=== PATIENT | male | born 1975 | race Caucasian/White ===

== ENCOUNTER 2021-02-08 21:30 | Inpatient (IN) | payer SELFPAY ==
[2021-02-08] MEDS ORDERED: Acetaminophen 325 MG Tab PO PRN (23:44)
[2021-02-08] MEDS ORDERED: Ibuprofen 200 MG Tab PO PRN (23:44)
--- NOTE | 2021-02-08 23:44 | PCM.HP.2 ---
H&P History of Present Illness - General Date of Service: 02/08/21 Admit Problem/Dx: Admission Diagnosis/Problem Admission Diagnosis/Problem Respiratory distress - History of Present Illness Initial Comments - Free Text/Narative: 45 yo male with pmh of hypertension who presented to [place] with increasing shortness of breath and cough. Patient was diagnosed with COVID-19 about two weeks ago. Contract tracer in [place] linked the infection back to when he ate at an [employer]. Patient reports he had fevers chills, cough, and shortness of breath that improved but then started to get worse four days ago. He was noted to be satting in the mid 80s and was requring 2 L NC O@ to keep sats above 90%. He had a CT angio which was negative for PE but showed infiltrates consistent with COVID. PAtient was given Rmdesivir 200 mg and Dexamethasone 10mg IV. [place] [facility] then arranged direct admission here in [place]. Patient has not received a COVID vaccine. - Related Data Allergies/Adverse Reactions: Allergies Allergy/AdvReac Type Severity Reaction Status Date / Time No Known Allergies Allergy Verified 02/08/21 22:03 Home Medications: Home Meds RX: Omeprazole 1 cap PO DAILY 07/05/18 [History] Naproxen Sodium [Aleve] 220 mg PO ONCALL PRN 07/11/18 [History] Naproxen [Naprosyn] 500 mg PO Q12HR #20 tab 07/11/18 [Rx] Albuterol Sulfate [Albuterol Sulfate HFA] 2 puff INH Q2H PRN 02/08/21 [History] lisinopriL [Lisinopril] 40 mg PO DAILY 02/08/21 [History] Past Medical History HEENT History: Reports: None Cardiovascular History: Reports: Hypertension Respiratory History: Reports: Other (See Below) Other Respiratory History: emphysema Gastrointestinal History: Reports: GERD Musculoskeletal History: Reports: Amputation, Fracture Neurological History: Reports: Migraines Endocrine/Metabolic History: Reports: Obesity/BMI 30+ - Past Surgical History HEENT Surgical History: Reports: None GI Surgical History: Reports: Hernia, Inguinal Male Surgical History: Reports: Vasectomy Musculoskeletal Surgical History: Reports: Shoulder Surgery Social & Family History - Tobacco Use Tobacco Use Status *Q: Former Tobacco User Used Tobacco, but Quit: Yes Month/Year Tobacco Last Used: 2013 - Caffeine Use Caffeine Use: Reports: None - Recreational Drug Use Recreational Drug Use: No H&P Review of Systems - Review of Systems: Review Of Systems: Comprehensive ROS is negative, except as noted in HPI. Exam - Exam Exam: See Below - Vital Signs Vital Signs: Last Vital Signs Temp 36.1 C 02/08/21 22:04 Pulse 82 02/08/21 22:04 Resp 20 02/08/21 22:04 BP 135/82 02/08/21 22:04 Pulse Ox 94 L 02/08/21 22:04 Weight: 135.397 kg - Exam General: Alert, Oriented HEENT: Mucosa Moist & [place] Neck: Supple Lungs: Clear to Auscultation, Normal Respiratory Effort Cardiovascular: Regular Rate, Regular Rhythm GI/Abdominal Exam: Soft, Non-Tender, No Distention Extremities: Non-Tender, No Pedal Edema Skin: Warm, Dry, Intact Neurological: No: Focal Deficit Sepsis Event Note - Evaluation Sepsis Screening Result: No Definite Risk - Focused Exam Vital Signs: Vital Signs Temp Pulse Resp BP Pulse Ox 02/08/21 22:04 36.1 C 82 20 135/82 94 L Problem List Initiated/Reviewed/Updated: Yes Orders Last 24hrs: Active Orders 24 hr Category Date Time Status Admission Status [Patient Status] [ADT] Routine ADT 02/08/21 21:49 Active Telemetry Monitoring [Cardiac Monitoring] [RC] Q8H Care 02/08/21 21:50 Active Assessment/Plan Comment:: 45 yo male admitted for acute hypoxic respiratory failure from COVID pneumonia. We will treat with supplemental oxygen via NC. We will continue Remdesivir, Dexamethasone and lovenox.
[2021-02-08] MEDS ORDERED: Azithromycin 500 MG Vial IV SCH (23:45)
[2021-02-08] MEDS ORDERED: cefTRIAXone 1 GM Vial IVPUSH SCH (23:45)
[2021-02-08] MEDS ORDERED: Albuterol 8 GM Inhaler INH PRN (23:49)
[2021-02-09] MEDS: cefTRIAXone 1 GM in Premix Bag 1 BAG IV SCH ×2 (00:12→22:51)
[2021-02-09] MEDS: Enoxaparin 40 MG/0.4 ML Syringe SUBCUT SCH ×2 (00:25→22:50)
[2021-02-09] MEDS: Azithromycin 500 MG in Sodium Chloride 0.9% 250 ML IV SCH ×2 (01:03→23:39)
[2021-02-09] MEDS: Omeprazole 20 MG Cap.CR PO SCH (06:32)
[2021-02-09 06:49] LABS: BLOOD UREA NITROGEN,BUN 11 mg/dL (7.0-18.0); CARBON DIOXIDE,CO2 29.6 mmol/L (21.0-32.0); CHLORIDE,CL 100 mmol/L (98-107); GLUCOSE RANDOM 186 mg/dL (74-106); POTASSIUM,K 3.8 mmol/L (3.5-5.1); SODIUM,NA 138 mmol/L (136-148)
[2021-02-09] MEDS ORDERED: Cholecalciferol (Vitamin D3) 25 MCG Tab PO ONE ×2 (09:15→09:22)
[2021-02-09] MEDS: Dexamethasone 4 MG Tab PO SCH (10:03)
[2021-02-09] MEDS: Lisinopril 10 MG Tab PO SCH (10:04)
--- NOTE | 2021-02-09 11:02 | PCM.PN ---
- General Info Date of Service: 02/09/21 Subjective Update: Patient states improvement this morning. States resolved headaches but has a sore throat when coughing. Denies chest pain, abdominal pain, states mild SOB, denies wheezing. Denies fever, chills, nausea, vomiting. - Review of Systems General: Denies: Fever, Chills Pulmonary: Reports: Shortness of Breath, Cough. Denies: Wheezing Cardiovascular: Reports: Dyspnea on Exertion Gastrointestinal: Denies: Abdominal Pain, Nausea, Vomiting Psychiatric: Denies: Confusion - Patient Data Vitals - Most Recent: Last Vital Signs Temp 96.6 F L 02/09/21 08:00 Pulse 74 02/09/21 08:00 Resp 14 02/09/21 08:00 BP 123/78 02/09/21 10:04 Pulse Ox 91 L 02/09/21 08:00 Weight - Most Recent: 298 lb 7.988 oz I&O - Last 24 Hours: Intake & Output 02/08/21 02/09/21 02/09/21 22:59 06:59 14:59 Intake Total 1000 Output Total 1300 Balance -300 Lab Results Last 24 Hours: Laboratory Results - last 24 hr 02/09/21 02/09/21 02/09/21 Range/Units 05:50 05:50 05:50 WBC 2.93 L (4.0-11.0) K/uL RBC 4.47 L (4.50-5.90) M/uL Hgb 13.9 (13.0-17.0) g/dL Hct 41.1 (38.0-50.0) % MCV 91.9 (80.0-98.0) fL MCH 31.1 (27.0-32.0) pg MCHC 33.8 (31.0-37.0) g/dL RDW Std Deviation 44.8 (28.0-62.0) fl RDW Coeff of Colette 14 (11.0-15.0) % Plt Count 249 (150-400) K/uL MPV 10.30 (7.40-12.00) fL Neut % (Auto) 63.5 (48.0-80.0) % Lymph % (Auto) 24.9 (16.0-40.0) % [place] % (Auto) 10.9 (0.0-15.0) % Eos % (Auto) 0.0 (0.0-7.0) % Baso % (Auto) 0.7 (0.0-1.5) % Neut # (Auto) 1.9 (1.4-5.7) K/uL Lymph # (Auto) 0.7 (0.6-2.4) K/uL [place] # (Auto) 0.3 (0.0-0.8) K/uL Eos # (Auto) 0.0 (0.0-0.7) K/uL Baso # (Auto) 0.0 (0.0-0.1) K/uL Nucleated RBC % 0.0 /100WBC Nucleated RBCs # 0 K/uL Sodium 138 (136-148) mmol/L Potassium 3.8 (3.5-5.1) mmol/L Chloride 100 (98-107) mmol/L Carbon Dioxide 29.6 (21.0-32.0) mmol/L BUN 11 (7.0-18.0) mg/dL Creatinine 0.9 (0.8-1.3) mg/dL Est Cr Clr Drug Dosing 107.63 mL/min Estimated GFR (MDRD) > 60.0 ml/min Glucose 186 H (74-106) mg/dL Calcium 8.4 L (8.5-10.1) mg/dL Total Bilirubin 1.2 H (0.2-1.0) mg/dL AST 73 H (15-37) IU/L ALT 100 H (14-63) IU/L Alkaline Phosphatase 158 H (46-116) U/L Total Protein 7.3 (6.4-8.2) g/dL Albumin 2.8 L (3.4-5.0) g/dL Globulin 4.5 H (2.6-4.0) g/dL Albumin/Globulin Ratio 0.6 L (0.9-1.6) Vitamin D 25-Hydroxy 17.0 L (30.0-100.0) ng/mL Med Orders - Current: Current Medications Acetaminophen (Acetaminophen 325 Mg Tab) 650 mg PO Q4H PRN PRN Reason: Pain (Mild 1-3)/fever Albuterol (Albuterol 8 Gm Inhaler) 2 gm INH Q2H PRN PRN Reason: Shortness of Breath Cholecalciferol (Cholecalciferol (Vitamin D3) 25 Mcg Tab) 50 mcg PO DAILY ONE Stop: 02/10/21 09:01 Dexamethasone (Dexamethasone 4 Mg Tab) 6 mg PO DAILY [facility] Last Admin: 02/09/21 10:03 Dose: 6 mg Documented by: Enoxaparin Sodium (Enoxaparin 40 Mg/0.4 Ml Syringe) 40 mg SUBCUT Q24H [facility] Last Admin: 02/09/21 00:25 Dose: 40 mg Documented by: Azithromycin 500 mg/ Sodium (Chloride) 250 mls @ 250 mls/hr IV Q24H [facility] Last Admin: 02/09/21 01:03 Dose: 250 mls/hr Documented by: Ceftriaxone Sodium/Dextrose 1 (gm/ Premix) 50 mls @ 100 mls/hr IV Q24H [facility] Last Admin: 02/09/21 00:12 Dose: 100 mls/hr Documented by: Remdesivir 100 mg/ Sodium (Chloride) 100 mls @ 100 mls/hr IV Q24H [facility] Stop: 02/12/21 19:59 Ibuprofen (Ibuprofen 200 Mg Tab) 200 mg PO Q6H PRN PRN Reason: Pain (mild 1-3) Lisinopril (Lisinopril 10 Mg Tab) 40 mg PO DAILY [facility] Last Admin: 02/09/21 10:04 Dose: 40 mg Documented by: Omeprazole (Omeprazole 20 Mg Cap.Cr) 20 mg PO ACBREAKFAST [facility] Last Admin: 02/09/21 06:32 Dose: 20 mg Documented by: Discontinued Medications Cholecalciferol (Cholecalciferol (Vitamin D3) 25 Mcg Tab) 100 mcg PO ONETIME ONE Stop: 02/09/21 09:16 Last Admin: 02/09/21 10:07 Dose: 50 mcg Documented by: Cholecalciferol (Cholecalciferol (Vitamin D3) 25 Mcg Tab) 50 mcg PO ONETIME ONE Stop: 02/09/21 09:23 Last Admin: 02/09/21 10:02 Dose: 50 mcg Documented by: - Exam General: Alert, Oriented Lungs: Normal Respiratory Effort. No: Crackles, Wheezing Cardiovascular: Regular Rate, Regular Rhythm GI/Abdominal Exam: Soft, Non-Tender Extremities: No Pedal Edema Psy/Mental Status: Alert - Patient Data Lab Results Last 24 hrs: Laboratory Results - last 24 hr 02/09/21 02/09/21 02/09/21 Range/Units 05:50 05:50 05:50 WBC 2.93 L (4.0-11.0) K/uL RBC 4.47 L (4.50-5.90) M/uL Hgb 13.9 (13.0-17.0) g/dL Hct 41.1 (38.0-50.0) % MCV 91.9 (80.0-98.0) fL MCH 31.1 (27.0-32.0) pg MCHC 33.8 (31.0-37.0) g/dL RDW Std Deviation 44.8 (28.0-62.0) fl RDW Coeff of Colette 14 (11.0-15.0) % Plt Count 249 (150-400) K/uL MPV 10.30 (7.40-12.00) fL Neut % (Auto) 63.5 (48.0-80.0) % Lymph % (Auto) 24.9 (16.0-40.0) % [place] % (Auto) 10.9 (0.0-15.0) % Eos % (Auto) 0.0 (0.0-7.0) % Baso % (Auto) 0.7 (0.0-1.5) % Neut # (Auto) 1.9 (1.4-5.7) K/uL Lymph # (Auto) 0.7 (0.6-2.4) K/uL [place] # (Auto) 0.3 (0.0-0.8) K/uL Eos # (Auto) 0.0 (0.0-0.7) K/uL Baso # (Auto) 0.0 (0.0-0.1) K/uL Nucleated RBC % 0.0 /100WBC Nucleated RBCs # 0 K/uL Sodium 138 (136-148) mmol/L Potassium 3.8 (3.5-5.1) mmol/L Chloride 100 (98-107) mmol/L Carbon Dioxide 29.6 (21.0-32.0) mmol/L BUN 11 (7.0-18.0) mg/dL Creatinine 0.9 (0.8-1.3) mg/dL Est Cr Clr Drug Dosing 107.63 mL/min Estimated GFR (MDRD) > 60.0 ml/min Glucose 186 H (74-106) mg/dL Calcium 8.4 L (8.5-10.1) mg/dL Total Bilirubin 1.2 H (0.2-1.0) mg/dL AST 73 H (15-37) IU/L ALT 100 H (14-63) IU/L Alkaline Phosphatase 158 H (46-116) U/L Total Protein 7.3 (6.4-8.2) g/dL Albumin 2.8 L (3.4-5.0) g/dL Globulin 4.5 H (2.6-4.0) g/dL Albumin/Globulin Ratio 0.6 L (0.9-1.6) Vitamin D 25-Hydroxy 17.0 L (30.0-100.0) ng/mL Result Diagrams: 02/09/21 05:50 02/09/21 05:50 Sepsis Event Note - Evaluation Sepsis Screening Result: No Definite Risk - Focused Exam Vital Signs: Vital Signs Temp Pulse Resp BP BP Pulse Ox Pulse Ox 02/09/21 10:04 123/78 02/09/21 08:00 96.6 F L 74 14 123/78 91 L 02/09/21 04:41 97 F 70 20 121/70 93 L 02/09/21 00:23 97 F 81 20 129/80 94 L 02/09/21 00:22 94 L - Problem List & Annotations (1) Hypertension SNOMED Code(s): 27061828 Code(s): I10 - ESSENTIAL (PRIMARY) HYPERTENSION Status: Acute Current Visit: Yes (2) GERD (gastroesophageal reflux disease) SNOMED Code(s): 879823004 Code(s): K21.9 - GASTRO-ESOPHAGEAL REFLUX DISEASE WITHOUT ESOPHAGITIS Status: Acute Current Visit: Yes - Problem List Review Problem List Initiated/Reviewed/Updated: Yes - My Orders Last 24 Hours: My Active Orders 02/10/21 09:00 Cholecalciferol (Vitamin D3) [Vitamin D3] 50 mcg PO DAILY ONE - Plan Plan:: Covid [place]- Remdesivir-100mg X 4 days Dexamethasone 6 mg p.o. X 10 days Ceftriaxone 1g Q24, Azithromycin 500mg Q24 Prone positioning, Oxygen support-maintain 02 saturations above 92%, incentive spirometry, Albuterol inhaler Q2PRN, Lovenox 40mg, Tylenol fever/pain, Telemetry, Vit D3
[2021-02-09] MEDS: REMDESIVIR 100 MG in Sodium Chloride 0.9% 100 ML IV SCH (18:55)
[2021-02-10 06:30] LABS: BLOOD UREA NITROGEN,BUN 17 mg/dL (7.0-18.0); CARBON DIOXIDE,CO2 27.1 mmol/L (21.0-32.0); CHLORIDE,CL 102 mmol/L (98-107); GLUCOSE RANDOM 133 mg/dL (74-106); POTASSIUM,K 3.4 mmol/L (3.5-5.1); SODIUM,NA 138 mmol/L (136-148)
[2021-02-10] MEDS: Omeprazole 20 MG Cap.CR PO SCH (06:32)
[2021-02-10] MEDS ORDERED: Potassium Chloride 20 MEQ Tab.ER PO ONE ×2 (07:53→09:00)
[2021-02-10] MEDS: Dexamethasone 4 MG Tab PO SCH (08:27)
[2021-02-10] MEDS: Lisinopril 10 MG Tab PO SCH (08:28)
[2021-02-10] MEDS ORDERED: Cholecalciferol (Vitamin D3) 25 MCG Tab PO ONE (09:00)
--- NOTE | 2021-02-10 10:20 | PCM.PN ---
- General Info Date of Service: 02/10/21 Subjective Update: Patient states no headaches, sore throat has improved. States urine color is not as dark. Denies fever, chills, abdominal pain. States mild wheezing, SOD with ex ertion. - Review of Systems General: Denies: Fever, Chills Pulmonary: Reports: Cough, Wheezing Cardiovascular: Reports: Dyspnea on Exertion. Denies: Chest Pain Gastrointestinal: Denies: Abdominal Pain, Nausea, Vomiting Neurological: Denies: Confusion, Dizziness, Headache Psychiatric: Denies: Confusion - Patient Data Vitals - Most Recent: Last Vital Signs Temp 97.4 F 02/10/21 08:45 Pulse 68 02/10/21 08:45 Resp 20 02/10/21 08:45 BP 130/66 02/10/21 08:45 Pulse Ox 85 L 02/10/21 08:45 Weight - Most Recent: 298 lb 7.988 oz I&O - Last 24 Hours: Intake & Output 02/09/21 02/10/21 02/10/21 22:59 06:59 14:59 Intake Total 800 1600 Output Total 680 900 Balance 120 700 Lab Results Last 24 Hours: Laboratory Results - last 24 hr 02/09/21 02/10/21 02/10/21 Range/Units 20:05 05:40 05:40 WBC 4.79 (4.0-11.0) K/uL RBC 4.09 L (4.50-5.90) M/uL Hgb 12.7 L (13.0-17.0) g/dL Hct 37.1 L (38.0-50.0) % MCV 90.7 (80.0-98.0) fL MCH 31.1 (27.0-32.0) pg MCHC 34.2 (31.0-37.0) g/dL RDW Std Deviation 43.6 (28.0-62.0) fl RDW Coeff of Colette 13 (11.0-15.0) % Plt Count 257 (150-400) K/uL MPV 10.60 (7.40-12.00) fL Neut % (Auto) 73.7 (48.0-80.0) % Lymph % (Auto) 17.5 (16.0-40.0) % [place] % (Auto) 8.6 (0.0-15.0) % Eos % (Auto) 0.0 (0.0-7.0) % Baso % (Auto) 0.2 (0.0-1.5) % Neut # (Auto) 3.5 (1.4-5.7) K/uL Lymph # (Auto) 0.8 (0.6-2.4) K/uL [place] # (Auto) 0.4 (0.0-0.8) K/uL Eos # (Auto) 0.0 (0.0-0.7) K/uL Baso # (Auto) 0.0 (0.0-0.1) K/uL Nucleated RBC % 0.0 /100WBC Nucleated RBCs # 0 K/uL Sodium 138 (136-148) mmol/L Potassium 3.4 L (3.5-5.1) mmol/L Chloride 102 (98-107) mmol/L Carbon Dioxide 27.1 (21.0-32.0) mmol/L BUN 17 (7.0-18.0) mg/dL Creatinine 0.8 (0.8-1.3) mg/dL Est Cr Clr Drug Dosing 121.08 mL/min Estimated GFR (MDRD) > 60.0 ml/min Glucose 133 H (74-106) mg/dL Calcium 8.0 L (8.5-10.1) mg/dL Total Bilirubin 0.6 (0.2-1.0) mg/dL AST 49 H (15-37) IU/L ALT 92 H (14-63) IU/L Alkaline Phosphatase 124 H (46-116) U/L Total Protein 6.4 (6.4-8.2) g/dL Albumin 2.7 L (3.4-5.0) g/dL Globulin 3.7 (2.6-4.0) g/dL Albumin/Globulin Ratio 0.7 L (0.9-1.6) Urine Color DARK YELLOW Urine Appearance CLEAR Urine pH 7.0 (5.0-8.0) Ur Specific [place] 1.015 (1.001-1.035) Urine Protein NEGATIVE (NEGATIVE) mg/dL Urine Glucose (UA) NEGATIVE (NEGATIVE) mg/dL Urine Ketones NEGATIVE (NEGATIVE) mg/dL Urine Occult Blood NEGATIVE (NEGATIVE) Urine Nitrite NEGATIVE (NEGATIVE) Urine Bilirubin NEGATIVE (NEGATIVE) Urine Urobilinogen >=8.0 H (<2.0) EU/dL Ur Leukocyte Esterase NEGATIVE (NEGATIVE) Med Orders - Current: Current Medications Acetaminophen (Acetaminophen 325 Mg Tab) 650 mg PO Q4H PRN PRN Reason: Pain (Mild 1-3)/fever Albuterol (Albuterol 8 Gm Inhaler) 2 gm INH Q2H PRN PRN Reason: Shortness of Breath Dexamethasone (Dexamethasone 4 Mg Tab) 6 mg PO DAILY [facility] Last Admin: 02/10/21 08:27 Dose: 6 mg Documented by: Enoxaparin Sodium (Enoxaparin 40 Mg/0.4 Ml Syringe) 40 mg SUBCUT Q24H [facility] Last Admin: 02/09/21 22:50 Dose: 40 mg Documented by: Azithromycin 500 mg/ Sodium (Chloride) 250 mls @ 250 mls/hr IV Q24H [facility] Last Admin: 02/09/21 23:39 Dose: 250 mls/hr Documented by: Ceftriaxone Sodium/Dextrose 1 (gm/ Premix) 50 mls @ 100 mls/hr IV Q24H [facility] Last Admin: 02/09/21 22:51 Dose: 100 mls/hr Documented by: Remdesivir 100 mg/ Sodium (Chloride) 100 mls @ 100 mls/hr IV Q24H [facility] Stop: 02/12/21 19:59 Last Admin: 02/09/21 18:55 Dose: 100 mls/hr Documented by: Ibuprofen (Ibuprofen 200 Mg Tab) 200 mg PO Q6H PRN PRN Reason: Pain (mild 1-3) Lisinopril (Lisinopril 10 Mg Tab) 40 mg PO DAILY [facility] Last Admin: 02/10/21 08:28 Dose: 40 mg Documented by: Omeprazole (Omeprazole 20 Mg Cap.Cr) 20 mg PO ACBREAKFAST [facility] Last Admin: 02/10/21 06:32 Dose: 20 mg Documented by: Discontinued Medications Cholecalciferol (Cholecalciferol (Vitamin D3) 25 Mcg Tab) 100 mcg PO ONETIME ONE Stop: 02/09/21 09:16 Last Admin: 02/09/21 10:07 Dose: 50 mcg Documented by: Cholecalciferol (Cholecalciferol (Vitamin D3) 25 Mcg Tab) 50 mcg PO ONETIME ONE Stop: 02/09/21 09:23 Last Admin: 02/09/21 10:02 Dose: 50 mcg Documented by: Cholecalciferol (Cholecalciferol (Vitamin D3) 25 Mcg Tab) 50 mcg PO DAILY ONE Stop: 02/10/21 09:01 Last Admin: 02/10/21 08:30 Dose: 50 mcg Documented by: Potassium Chloride (Potassium Chloride 20 Meq Tab.Er) 40 meq PO ONETIME ONE Stop: 02/10/21 07:54 Last Admin: 02/10/21 07:56 Dose: Not Given Documented by: Potassium Chloride (Potassium Chloride 20 Meq Tab.Er) 40 meq PO ONETIME ONE Stop: 02/10/21 09:01 Last Admin: 02/10/21 08:27 Dose: 40 meq Documented by: - Exam General: Alert Lungs: Wheezing Cardiovascular: Regular Rate, Regular Rhythm Extremities: No Pedal Edema Psy/Mental Status: Alert - Patient Data Lab Results Last 24 hrs: Laboratory Results - last 24 hr 02/09/21 02/10/21 02/10/21 Range/Units 20:05 05:40 05:40 WBC 4.79 (4.0-11.0) K/uL RBC 4.09 L (4.50-5.90) M/uL Hgb 12.7 L (13.0-17.0) g/dL Hct 37.1 L (38.0-50.0) % MCV 90.7 (80.0-98.0) fL MCH 31.1 (27.0-32.0) pg MCHC 34.2 (31.0-37.0) g/dL RDW Std Deviation 43.6 (28.0-62.0) fl RDW Coeff of Colette 13 (11.0-15.0) % Plt Count 257 (150-400) K/uL MPV 10.60 (7.40-12.00) fL Neut % (Auto) 73.7 (48.0-80.0) % Lymph % (Auto) 17.5 (16.0-40.0) % [place] % (Auto) 8.6 (0.0-15.0) % Eos % (Auto) 0.0 (0.0-7.0) % Baso % (Auto) 0.2 (0.0-1.5) % Neut # (Auto) 3.5 (1.4-5.7) K/uL Lymph # (Auto) 0.8 (0.6-2.4) K/uL [place] # (Auto) 0.4 (0.0-0.8) K/uL Eos # (Auto) 0.0 (0.0-0.7) K/uL Baso # (Auto) 0.0 (0.0-0.1) K/uL Nucleated RBC % 0.0 /100WBC Nucleated RBCs # 0 K/uL Sodium 138 (136-148) mmol/L Potassium 3.4 L (3.5-5.1) mmol/L Chloride 102 (98-107) mmol/L Carbon Dioxide 27.1 (21.0-32.0) mmol/L BUN 17 (7.0-18.0) mg/dL Creatinine 0.8 (0.8-1.3) mg/dL Est Cr Clr Drug Dosing 121.08 mL/min Estimated GFR (MDRD) > 60.0 ml/min Glucose 133 H (74-106) mg/dL Calcium 8.0 L (8.5-10.1) mg/dL Total Bilirubin 0.6 (0.2-1.0) mg/dL AST 49 H (15-37) IU/L ALT 92 H (14-63) IU/L Alkaline Phosphatase 124 H (46-116) U/L Total Protein 6.4 (6.4-8.2) g/dL Albumin 2.7 L (3.4-5.0) g/dL Globulin 3.7 (2.6-4.0) g/dL Albumin/Globulin Ratio 0.7 L (0.9-1.6) Urine Color DARK YELLOW Urine Appearance CLEAR Urine pH 7.0 (5.0-8.0) Ur Specific [place] 1.015 (1.001-1.035) Urine Protein NEGATIVE (NEGATIVE) mg/dL Urine Glucose (UA) NEGATIVE (NEGATIVE) mg/dL Urine Ketones NEGATIVE (NEGATIVE) mg/dL Urine Occult Blood NEGATIVE (NEGATIVE) Urine Nitrite NEGATIVE (NEGATIVE) Urine Bilirubin NEGATIVE (NEGATIVE) Urine Urobilinogen >=8.0 H (<2.0) EU/dL Ur Leukocyte Esterase NEGATIVE (NEGATIVE) Result Diagrams: 02/10/21 05:40 02/10/21 05:40 Sepsis Event Note - Evaluation Sepsis Screening Result: No Definite Risk - Focused Exam Vital Signs: Vital Signs Temp Pulse Resp BP BP Pulse Ox 02/10/21 08:45 97.4 F 68 20 130/66 85 L 02/10/21 08:28 130/66 02/10/21 06:33 18 93 L 02/10/21 04:00 96.6 F L 58 L 18 136/86 92 L 02/09/21 22:58 96.6 F L 75 20 133/79 93 L - Problem List & Annotations (1) Hypertension SNOMED Code(s): 92223883 Code(s): I10 - ESSENTIAL (PRIMARY) HYPERTENSION Status: Acute Current Visit: Yes (2) GERD (gastroesophageal reflux disease) SNOMED Code(s): 909984956 Code(s): K21.9 - GASTRO-ESOPHAGEAL REFLUX DISEASE WITHOUT ESOPHAGITIS Status: Acute Current Visit: Yes - Problem List Review Problem List Initiated/Reviewed/Updated: Yes - Plan Plan:: Covid [place]- Remdesivir-100mg X 4 days Dexamethasone 6 mg p.o. X 10 days Ceftriaxone 1g Q24, Azithromycin 500mg Q24 Prone positioning, Oxygen support-maintain 02 saturations above 92%, incentive spirometry, Albuterol inhaler Q2PRN, Lovenox 40mg, Tylenol fever/pain, Telemetry, Vit D3. Will start Miralax at bedtime for stated constipation.
[2021-02-10] MEDS: REMDESIVIR 100 MG in Sodium Chloride 0.9% 100 ML IV SCH (18:04)
[2021-02-10] MEDS: Polyethylene Glycol 3350 Powder 17 GM Packet PO SCH (20:19)
[2021-02-10] MEDS: cefTRIAXone 1 GM in Premix Bag 1 BAG IV SCH (23:32)
[2021-02-10] MEDS: Enoxaparin 40 MG/0.4 ML Syringe SUBCUT SCH (23:32)
[2021-02-11] MEDS: Azithromycin 500 MG in Sodium Chloride 0.9% 250 ML IV SCH ×2 (00:22→23:52)
[2021-02-11 06:15] LABS: BLOOD UREA NITROGEN,BUN 15 mg/dL (7.0-18.0); CARBON DIOXIDE,CO2 27.8 mmol/L (21.0-32.0); CHLORIDE,CL 106 mmol/L (98-107); GLUCOSE RANDOM 92 mg/dL (74-106); POTASSIUM,K 3.5 mmol/L (3.5-5.1); SODIUM,NA 141 mmol/L (136-148)
[2021-02-11] MEDS: Omeprazole 20 MG Cap.CR PO SCH (06:34)
[2021-02-11] MEDS: Lisinopril 10 MG Tab PO SCH (08:42)
[2021-02-11] MEDS: Dexamethasone 4 MG Tab PO SCH (08:43)
--- NOTE | 2021-02-11 16:40 | PCM.PN ---
- General Info Date of Service: 02/11/21 Subjective Update: Patient states he feels better this morning. Patient denies shortness of breath while resting but still has mild shortness of breath when ambulating. Patient de nies cough, fever, chills, nausea, vomiting. Patient oxygen requirements down to 0.5 L nasal cannula. - Review of Systems General: Denies: Fever, Chills Pulmonary: Denies: Shortness of Breath, Cough Cardiovascular: Reports: Dyspnea on Exertion Gastrointestinal: Denies: Abdominal Pain, Nausea, Vomiting Neurological: Denies: Dizziness, Headache, Numbness - Patient Data Vitals - Most Recent: Last Vital Signs Temp 96.4 F L 02/11/21 16:00 Pulse 63 02/11/21 16:00 Resp 20 02/11/21 16:00 BP 135/82 02/11/21 16:00 Pulse Ox 94 L 02/11/21 16:00 Weight - Most Recent: 298 lb 7.988 oz I&O - Last 24 Hours: Intake & Output 02/11/21 02/11/21 02/11/21 06:59 14:59 22:59 Intake Total 1350 1600 Output Total 600 Balance 750 1600 Lab Results Last 24 Hours: Laboratory Results - last 24 hr 02/11/21 02/11/21 Range/Units 05:30 05:30 WBC 4.91 (4.0-11.0) K/uL RBC 4.09 L (4.50-5.90) M/uL Hgb 12.8 L (13.0-17.0) g/dL Hct 36.8 L (38.0-50.0) % MCV 90.0 (80.0-98.0) fL MCH 31.3 (27.0-32.0) pg MCHC 34.8 (31.0-37.0) g/dL RDW Std Deviation 43.4 (28.0-62.0) fl RDW Coeff of Colette 13 (11.0-15.0) % Plt Count 257 (150-400) K/uL MPV 10.30 (7.40-12.00) fL Neut % (Auto) 70.2 (48.0-80.0) % Lymph % (Auto) 19.6 (16.0-40.0) % [place] % (Auto) 9.2 (0.0-15.0) % Eos % (Auto) 0.8 (0.0-7.0) % Baso % (Auto) 0.2 (0.0-1.5) % Neut # (Auto) 3.5 (1.4-5.7) K/uL Lymph # (Auto) 1.0 (0.6-2.4) K/uL [place] # (Auto) 0.5 (0.0-0.8) K/uL Eos # (Auto) 0.0 (0.0-0.7) K/uL Baso # (Auto) 0.0 (0.0-0.1) K/uL Nucleated RBC % 0.0 /100WBC Nucleated RBCs # 0 K/uL Sodium 141 (136-148) mmol/L Potassium 3.5 (3.5-5.1) mmol/L Chloride 106 (98-107) mmol/L Carbon Dioxide 27.8 (21.0-32.0) mmol/L BUN 15 (7.0-18.0) mg/dL Creatinine 0.7 L (0.8-1.3) mg/dL Est Cr Clr Drug Dosing 138.38 mL/min Estimated GFR (MDRD) > 60.0 ml/min Glucose 92 (74-106) mg/dL Calcium 7.7 L (8.5-10.1) mg/dL Total Bilirubin 0.5 (0.2-1.0) mg/dL AST 56 H (15-37) IU/L ALT 96 H (14-63) IU/L Alkaline Phosphatase 107 (46-116) U/L Total Protein 6.0 L (6.4-8.2) g/dL Albumin 2.6 L (3.4-5.0) g/dL Globulin 3.4 (2.6-4.0) g/dL Albumin/Globulin Ratio 0.8 L (0.9-1.6) Med Orders - Current: Current Medications Acetaminophen (Acetaminophen 325 Mg Tab) 650 mg PO Q4H PRN PRN Reason: Pain (Mild 1-3)/fever Albuterol (Albuterol 8 Gm Inhaler) 2 gm INH Q2H PRN PRN Reason: Shortness of Breath Dexamethasone (Dexamethasone 4 Mg Tab) 6 mg PO DAILY RA Last Admin: 02/11/21 08:43 Dose: 6 mg Documented by: Enoxaparin Sodium (Enoxaparin 40 Mg/0.4 Ml Syringe) 40 mg SUBCUT Q24H [facility] Last Admin: 02/10/21 23:32 Dose: 40 mg Documented by: Azithromycin 500 mg/ Sodium (Chloride) 250 mls @ 250 mls/hr IV Q24H [facility] Last Admin: 02/11/21 00:22 Dose: 250 mls/hr Documented by: Ceftriaxone Sodium/Dextrose 1 (gm/ Premix) 50 mls @ 100 mls/hr IV Q24H [facility] Last Admin: 02/10/21 23:32 Dose: 100 mls/hr Documented by: Remdesivir 100 mg/ Sodium (Chloride) 100 mls @ 100 mls/hr IV Q24H [facility] Stop: 02/12/21 19:59 Last Admin: 02/10/21 18:04 Dose: 100 mls/hr Documented by: Ibuprofen (Ibuprofen 200 Mg Tab) 200 mg PO Q6H PRN PRN Reason: Pain (mild 1-3) Lisinopril (Lisinopril 10 Mg Tab) 40 mg PO DAILY [facility] Last Admin: 02/11/21 08:42 Dose: 40 mg Documented by: Omeprazole (Omeprazole 20 Mg Cap.Cr) 20 mg PO ACBREAKFAST [facility] Last Admin: 02/11/21 06:34 Dose: 20 mg Documented by: Polyethylene Glycol (Polyethylene Glycol 3350 Powder 17 Gm Packet) 17 gm PO BEDTIME [facility] Last Admin: 02/10/21 20:19 Dose: 17 gm Documented by: Discontinued Medications Cholecalciferol (Cholecalciferol (Vitamin D3) 25 Mcg Tab) 100 mcg PO ONETIME ONE Stop: 02/09/21 09:16 Last Admin: 02/09/21 10:07 Dose: 50 mcg Documented by: Cholecalciferol (Cholecalciferol (Vitamin D3) 25 Mcg Tab) 50 mcg PO ONETIME ONE Stop: 02/09/21 09:23 Last Admin: 02/09/21 10:02 Dose: 50 mcg Documented by: Cholecalciferol (Cholecalciferol (Vitamin D3) 25 Mcg Tab) 50 mcg PO DAILY ONE Stop: 02/10/21 09:01 Last Admin: 02/10/21 08:30 Dose: 50 mcg Documented by: Potassium Chloride (Potassium Chloride 20 Meq Tab.Er) 40 meq PO ONETIME ONE Stop: 02/10/21 07:54 Last Admin: 02/10/21 07:56 Dose: Not Given Documented by: Potassium Chloride (Potassium Chloride 20 Meq Tab.Er) 40 meq PO ONETIME ONE Stop: 02/10/21 09:01 Last Admin: 02/10/21 08:27 Dose: 40 meq Documented by: - Exam Quality Assessment: Supplemental Oxygen (0.5L N/C) General: Alert, Oriented Lungs: Clear to Auscultation, Normal Respiratory Effort Cardiovascular: Regular Rate, Regular Rhythm Psy/Mental Status: Alert - Patient Data Lab Results Last 24 hrs: Laboratory Results - last 24 hr 02/11/21 02/11/21 Range/Units 05:30 05:30 WBC 4.91 (4.0-11.0) K/uL RBC 4.09 L (4.50-5.90) M/uL Hgb 12.8 L (13.0-17.0) g/dL Hct 36.8 L (38.0-50.0) % MCV 90.0 (80.0-98.0) fL MCH 31.3 (27.0-32.0) pg MCHC 34.8 (31.0-37.0) g/dL RDW Std Deviation 43.4 (28.0-62.0) fl RDW Coeff of Colette 13 (11.0-15.0) % Plt Count 257 (150-400) K/uL MPV 10.30 (7.40-12.00) fL Neut % (Auto) 70.2 (48.0-80.0) % Lymph % (Auto) 19.6 (16.0-40.0) % [place] % (Auto) 9.2 (0.0-15.0) % Eos % (Auto) 0.8 (0.0-7.0) % Baso % (Auto) 0.2 (0.0-1.5) % Neut # (Auto) 3.5 (1.4-5.7) K/uL Lymph # (Auto) 1.0 (0.6-2.4) K/uL [place] # (Auto) 0.5 (0.0-0.8) K/uL Eos # (Auto) 0.0 (0.0-0.7) K/uL Baso # (Auto) 0.0 (0.0-0.1) K/uL Nucleated RBC % 0.0 /100WBC Nucleated RBCs # 0 K/uL Sodium 141 (136-148) mmol/L Potassium 3.5 (3.5-5.1) mmol/L Chloride 106 (98-107) mmol/L Carbon Dioxide 27.8 (21.0-32.0) mmol/L BUN 15 (7.0-18.0) mg/dL Creatinine 0.7 L (0.8-1.3) mg/dL Est Cr Clr Drug Dosing 138.38 mL/min Estimated GFR (MDRD) > 60.0 ml/min Glucose 92 (74-106) mg/dL Calcium 7.7 L (8.5-10.1) mg/dL Total Bilirubin 0.5 (0.2-1.0) mg/dL AST 56 H (15-37) IU/L ALT 96 H (14-63) IU/L Alkaline Phosphatase 107 (46-116) U/L Total Protein 6.0 L (6.4-8.2) g/dL Albumin 2.6 L (3.4-5.0) g/dL Globulin 3.4 (2.6-4.0) g/dL Albumin/Globulin Ratio 0.8 L (0.9-1.6) Result Diagrams: 02/11/21 05:30 02/11/21 05:30 Sepsis Event Note - Evaluation Sepsis Screening Result: No Definite Risk - Focused Exam Vital Signs: Vital Signs Temp Pulse Resp BP BP Pulse Ox 02/11/21 16:00 96.4 F L 63 20 135/82 94 L 02/11/21 12:05 96.3 F L 73 15 132/85 92 L 02/11/21 08:42 137/88 02/11/21 08:00 95.9 F L 72 15 137/88 94 L - Problem List & Annotations (1) Hypertension SNOMED Code(s): 74560934 Code(s): I10 - ESSENTIAL (PRIMARY) HYPERTENSION Status: Acute Current Visit: Yes (2) GERD (gastroesophageal reflux disease) SNOMED Code(s): 074233179 Code(s): K21.9 - GASTRO-ESOPHAGEAL REFLUX DISEASE WITHOUT ESOPHAGITIS Status: Acute Current Visit: Yes - Problem List Review Problem List Initiated/Reviewed/Updated: Yes - My Orders Last 24 Hours: My Active Orders 02/10/21 21:00 polyethylene glycoL 3350 [MiraLAX] 17 gm PO BEDTIME - Plan Plan:: Covid [place]- Remdesivir-100mg X 4 days Dexamethasone 6 mg p.o. X 10 days Ceftriaxone 1g Q24, Azithromycin 500mg Q24 Prone positioning, Oxygen support-maintain 02 saturations above 92%, incentive spirometry, Albuterol inhaler Q2PRN, Lovenox 40mg, Tylenol fever/pain, Telemetry, Vit D3. Will start Miralax at bedtime for stated constipation. Patient is currently on 0.5 L via nasal cannula oxygen support. We will attempt to wean patient to room air this afternoon and overnight. We will try a walking oxygen trial tomorrow with possible discharge pending a.m. labs, vital signs and clinical impression.
[2021-02-11] MEDS: REMDESIVIR 100 MG in Sodium Chloride 0.9% 100 ML IV SCH (18:41)
[2021-02-11] MEDS: Polyethylene Glycol 3350 Powder 17 GM Packet PO SCH (20:48)
[2021-02-11] MEDS: Enoxaparin 40 MG/0.4 ML Syringe SUBCUT SCH (22:59)
[2021-02-11] MEDS: cefTRIAXone 1 GM in Premix Bag 1 BAG IV SCH (22:59)
[2021-02-12 06:24] LABS: BLOOD UREA NITROGEN,BUN 13 mg/dL (7.0-18.0); CARBON DIOXIDE,CO2 26.3 mmol/L (21.0-32.0); CHLORIDE,CL 105 mmol/L (98-107); GLUCOSE RANDOM 87 mg/dL (74-106); POTASSIUM,K 3.8 mmol/L (3.5-5.1); SODIUM,NA 140 mmol/L (136-148)
[2021-02-12] MEDS: Omeprazole 20 MG Cap.CR PO SCH (06:31)
[2021-02-12] MEDS: Dexamethasone 4 MG Tab PO SCH (08:18)
[2021-02-12] MEDS: Lisinopril 10 MG Tab PO SCH (08:18)
--- NOTE | 2021-02-12 12:14 | PCM.DCSUM1 ---
Discharge Summary - Hospital Course Free Text/Narrative:: 45-year-old male who tested positive for COVID-19 roughly 2 weeks prior to admission, presented to hospital in [place] with shortness of breath and cough. Patient was admitted for COVID-19 pneumonia. Past medical history to include hypertension. Patient believes he acquired the infection while eating at a restaurant in [place]. Patient states his symptoms were improving, but then started to get worse roughly 4 days prior to admission. Patient symptoms included cough, fever, chills, shortness of breath. Upon admission to the ER in [place] with the patient currently resides, patient was noted to have saturations n the mid 80s and was requiring 2L oxygen via N/C. CT angio completed which was negative for pulmonary embolism but showed infiltrates consistent with COVID-19 infection. Patient was given initial dose of remdesivir 20 mg, and 1 dose of dexamethasone 10 mg IV. Patient was then then transferred to [place] for further care. On admission patient resumed therapy with remdesivir, dexamethasone, IV antibiotics, Lovenox, oxygen via nasal cannula. Prior to discharge patient was weaned to room air. Oxygen walking trial completed and patient's lowest oxygen saturation recorded was 88%. Patient quickly rebounded to 91-92% without the need for oxygen support. Patient discharged home with albuterol inhaler, advised to report symptoms of shortness of breath, cough, fever, chills, chest pain to primary care physician. If patient is experiencing severe chest pain, shortness of breath, dizziness, patient advised to visit emergency room. - Discharge Data Discharge Date: 02/12/21 Discharge Disposition: Home, Self-Care 01 Condition: Good - Referral to Home Health Primary Care Physician: PCP None - Discharge Diagnosis/Problem(s) (1) Hypertension SNOMED Code(s): 55069081 ICD Code: I10 - ESSENTIAL (PRIMARY) HYPERTENSION Status: Acute Current Visit: Yes (2) GERD (gastroesophageal reflux disease) SNOMED Code(s): 386620605 ICD Code: K21.9 - GASTRO-ESOPHAGEAL REFLUX DISEASE WITHOUT ESOPHAGITIS Status: Acute Current Visit: Yes - Patient Instructions Diet: Usual Diet as Tolerated Notify Provider of: Fever, Increased Pain, Nausea and/or Vomiting Other/Special Instructions: Please report any symptoms of fever, chills, cough, shortness of breath, chest pain, dizziness, lightheadedness to primary care doctor. If expierencing diffculty breathing and severe shortness of breath, report to ED. May use inhaler as needed for wheezing/shortness of breath every 4-6hrs. - Discharge Plan *PRESCRIPTION DRUG MONITORING PROGRAM REVIEWED*: Not Applicable *COPY OF PRESCRIPTION DRUG MONITORING REPORT IN PATIENT FREDIS: Not Applicable Prescriptions/Med Rec: Albuterol Sulfate [Albuterol Sulfate HFA] 2 puff INH Q2H PRN #1 inhaler PRN Reason: Shortness Of Breath Home Medications: Home Meds Omeprazole 20 mg PO DAILY 07/05/18 [History] lisinopriL [Lisinopril] 40 mg PO DAILY 02/08/21 [History] Albuterol Sulfate [Albuterol Sulfate HFA] 2 puff INH Q2H PRN #1 inhaler 02/12/21 [Rx] Patient Handouts: COVID-19, Albuterol inhalation aerosol, COVID-19: Quarantine vs. Isolation - [facility], Coronavirus Information 09/17/19, Prevent the Spread of COVID-19 if You Are Sick - [facility] Referrals: Niesha Narvaez PA [Physician [employer]ending K[employer]ender] - 02/23/21 8:00 am - Discharge Summary/Plan Comment DC Time >30 min.: Yes Total # of Minutes for Discharge Time: 45 minutes - General Info Date of Service: 02/12/21 Subjective Update: Patient states he feels fine, would like to go home. Denies any fever, chills, chest pain, shortness of breath. - Review of Systems General: Denies: Fever, Chills Pulmonary: Denies: Shortness of Breath, Cough Cardiovascular: Denies: Chest Pain, Orthopnea, Edema Gastrointestinal: Denies: Abdominal Pain, Nausea, Vomiting Neurological: Denies: Confusion, Dizziness, Headache - Patient Data Vitals - Most Recent: Last Vital Signs Temp 95.5 F L 02/12/21 11:45 Pulse 78 02/12/21 11:45 Resp 15 02/12/21 11:45 BP 132/89 02/12/21 11:45 Pulse Ox 93 L 02/12/21 11:45 Weight - Most Recent: 298 lb 7.988 oz I&O - Last 24 hours: Intake & Output 02/11/21 02/12/21 02/12/21 22:59 06:59 14:59 Intake Total 1600 1850 Output Total 1200 Balance 1600 650 Lab Results - Last 24 hrs: Laboratory Results - last 24 hr 02/12/21 02/12/21 Range/Units 05:40 05:40 WBC 5.32 (4.0-11.0) K/uL RBC 4.21 L (4.50-5.90) M/uL Hgb 13.0 (13.0-17.0) g/dL Hct 37.8 L (38.0-50.0) % MCV 89.8 (80.0-98.0) fL MCH 30.9 (27.0-32.0) pg MCHC 34.4 (31.0-37.0) g/dL RDW Std Deviation 43.2 (28.0-62.0) fl RDW Coeff of Colette 13 (11.0-15.0) % Plt Count 280 (150-400) K/uL MPV 10.20 (7.40-12.00) fL Neut % (Auto) 68.4 (48.0-80.0) % Lymph % (Auto) 23.1 (16.0-40.0) % [place] % (Auto) 7.3 (0.0-15.0) % Eos % (Auto) 0.8 (0.0-7.0) % Baso % (Auto) 0.4 (0.0-1.5) % Neut # (Auto) 3.6 (1.4-5.7) K/uL Lymph # (Auto) 1.2 (0.6-2.4) K/uL [place] # (Auto) 0.4 (0.0-0.8) K/uL Eos # (Auto) 0.0 (0.0-0.7) K/uL Baso # (Auto) 0.0 (0.0-0.1) K/uL Nucleated RBC % 0.0 /100WBC Nucleated RBCs # 0 K/uL Sodium 140 (136-148) mmol/L Potassium 3.8 (3.5-5.1) mmol/L Chloride 105 (98-107) mmol/L Carbon Dioxide 26.3 (21.0-32.0) mmol/L BUN 13 (7.0-18.0) mg/dL Creatinine 0.7 L (0.8-1.3) mg/dL Est Cr Clr Drug Dosing 138.38 mL/min Estimated GFR (MDRD) > 60.0 ml/min Glucose 87 (74-106) mg/dL Calcium 7.9 L (8.5-10.1) mg/dL Total Bilirubin 0.6 (0.2-1.0) mg/dL AST 57 H (15-37) IU/L ALT 113 H (14-63) IU/L Alkaline Phosphatase 105 (46-116) U/L Total Protein 6.0 L (6.4-8.2) g/dL Albumin 2.6 L (3.4-5.0) g/dL Globulin 3.4 (2.6-4.0) g/dL Albumin/Globulin Ratio 0.8 L (0.9-1.6) Med Orders - Current: Current Medications Acetaminophen (Acetaminophen 325 Mg Tab) 650 mg PO Q4H PRN PRN Reason: Pain (Mild 1-3)/fever Albuterol (Albuterol 8 Gm Inhaler) 2 gm INH Q2H PRN PRN Reason: Shortness of Breath Dexamethasone (Dexamethasone 4 Mg Tab) 6 mg PO DAILY [facility] Last Admin: 02/12/21 08:18 Dose: 6 mg Documented by: Enoxaparin Sodium (Enoxaparin 40 Mg/0.4 Ml Syringe) 40 mg SUBCUT Q24H [facility] Last Admin: 02/11/21 22:59 Dose: 40 mg Documented by: Azithromycin 500 mg/ Sodium (Chloride) 250 mls @ 250 mls/hr IV Q24H [facility] Last Admin: 02/11/21 23:52 Dose: 250 mls/hr Documented by: Ceftriaxone Sodium/Dextrose 1 (gm/ Premix) 50 mls @ 100 mls/hr IV Q24H [facility] Last Admin: 02/11/21 22:59 Dose: 100 mls/hr Documented by: Remdesivir 100 mg/ Sodium (Chloride) 100 mls @ 100 mls/hr IV Q24H [facility] Stop: 02/12/21 19:59 Last Admin: 02/11/21 18:41 Dose: 100 mls/hr Documented by: Ibuprofen (Ibuprofen 200 Mg Tab) 200 mg PO Q6H PRN PRN Reason: Pain (mild 1-3) Lisinopril (Lisinopril 10 Mg Tab) 40 mg PO DAILY [facility] Last Admin: 02/12/21 08:18 Dose: 40 mg Documented by: Omeprazole (Omeprazole 20 Mg Cap.Cr) 20 mg PO ACBREAKFAST [facility] Last Admin: 02/12/21 06:31 Dose: 20 mg Documented by: Polyethylene Glycol (Polyethylene Glycol 3350 Powder 17 Gm Packet) 17 gm PO BEDTIME [facility] Last Admin: 02/11/21 20:48 Dose: 17 gm Documented by: Discontinued Medications Cholecalciferol (Cholecalciferol (Vitamin D3) 25 Mcg Tab) 100 mcg PO ONETIME ONE Stop: 02/09/21 09:16 Last Admin: 02/09/21 10:07 Dose: 50 mcg Documented by: Cholecalciferol (Cholecalciferol (Vitamin D3) 25 Mcg Tab) 50 mcg PO ONETIME ONE Stop: 02/09/21 09:23 Last Admin: 02/09/21 10:02 Dose: 50 mcg Documented by: Cholecalciferol (Cholecalciferol (Vitamin D3) 25 Mcg Tab) 50 mcg PO DAILY ONE Stop: 02/10/21 09:01 Last Admin: 02/10/21 08:30 Dose: 50 mcg Documented by: Potassium Chloride (Potassium Chloride 20 Meq Tab.Er) 40 meq PO ONETIME ONE Stop: 02/10/21 07:54 Last Admin: 02/10/21 07:56 Dose: Not Given Documented by: Potassium Chloride (Potassium Chloride 20 Meq Tab.Er) 40 meq PO ONETIME ONE Stop: 02/10/21 09:01 Last Admin: 02/10/21 08:27 Dose: 40 meq Documented by:
== END 2021-02-12 14:05 | disposition home or self-care (01) | DRG 177 ==
LOC: MW.MS 21:30
PROVIDERS: ADMIT Internal Medicine; ATTEND Internal Medicine
PROC: XW033E5 Introduction of Remdesivir Anti-infective into Peripheral Vein, Percutaneous Approach, New Technology Group 5 (ICD-10-PCS; principal; 2021-02-08)
DX: U07.1 COVID-19 (principal); J12.82 Pneumonia due to coronavirus disease 2019; J96.01 Acute respiratory failure with hypoxia; Z68.41 Body mass index [BMI] 40.0-44.9, adult; K21.9 Gastro-esophageal reflux disease without esophagitis; I10 Essential (primary) hypertension; E66.9 Obesity, unspecified; J43.9 Emphysema, unspecified; Z87.891 Personal history of nicotine dependence; Z79.899 Other long term (current) drug therapy
CPT/HCPCS: 36415; 80053; 81003; 82306; 85025; A9270-GY; J0456; J0696; J1650; J7050; J8540